=== PATIENT | female | born 1935 | race Caucasian/White ===

== ENCOUNTER 2016-08-17 00:54 | Inpatient (IN) | payer OTHER ==
[2016-08-17] MEDS ORDERED: NS 1,000 ML IV ONE ×2 (01:16)
[2016-08-17] MEDS ORDERED: ONDANSETRON 4 MG/2 ML VIAL IVP ONE (01:16)
--- NOTE | 2016-08-17 01:19 | EDPHY ---
H & P Stated Complaint: x4 days - vomiting, abd pain, abd distension. concerned re dehydration. Time Seen by Provider: 08/17/16 01:06 HPI/ROS: HPI The patient presents with nausea, vomiting, vague dizziness which have been present for the last 4 days. Her symptoms started slowly and got progressively worse. She has been able to take some water by mouth and small amounts of food though not as much as usual. She was seen by her doctor today an given 2 L of normal saline. She was feeling better and was able to tolerate some dinner. However, she awoke and had an episode of vomiting. She noticed that her abdomen felt distended and that is what brought her into the emergency room. REVIEW OF SYSTEMS Constitutional: No fever, no chills. Eyes: No discharge. ENT: No sore throat. Cardiovascular: No chest pain, no palpitations. Respiratory: No cough, no shortness of breath. Gastrointestinal: See HPI Genitourinary: No hematuria. Musculoskeletal: No back pain. Skin: No rashes. Neurological: No headache. PMHx: CLL Soc Hx: Lives at home with her PHYSICAL General Appearance: Alert, no distress Eyes: Pupils equal and round no pallor or injection ENT, Mouth: Mucous membranes dry Respiratory: There are no retractions, lungs are clear to auscultation Cardiovascular: Regular rate and rhythm Gastrointestinal: Abdomen is soft with mild distention, diffuse mild tenderness Neurological: A&O, moves all extremities Skin: Warm and dry, no rashes Musculoskeletal: Neck is supple non tender Extremities: symmetrical, full range of motion Psychiatric: Patient is oriented X 3, there is no agitation Source: Patient Exam Limitations: No limitations - Personal History Current Tetanus/Diphtheria Vaccine: Unsure Current Tetanus Diphtheria and Acellular Pertussis (TDAP): Unsure - Medical/Surgical History Hx Asthma: No Hx Chronic Respiratory Disease: No Hx Diabetes: No Hx Cardiac Disease: No Hx Renal Disease: No Hx Cirrhosis: No Hx Alcoholism: No Hx HIV/AIDS: No Hx Splenectomy or Spleen Trauma: No Other PMH: hypothyroid, CLL, macular degeneration, uterine CA, hysterectomy, skin CA, knee surgery - Social History Smoking Status: Never smoked Constitutional: Initial Vital Signs Temperature (C) 36.7 C 08/17/16 01:02 Heart Rate 85 08/17/16 01:02 Respiratory Rate 16 08/17/16 01:02 Blood Pressure 166/82 H 08/17/16 01:02 O2 Sat (%) 94 08/17/16 01:02 O2 Delivery Mode Room Air Allergies/Adverse Reactions: No Known Allergies Allergy (Verified 08/17/16 00:59) Home Medications: Medication Instructions Recorded [place] Thyroid 08/17/16 Oxytocin 08/17/16 Medical Decision Making - Diagnostics Imaging: CT abd pel with IV contrast: Small bowel obstruction, discussed with Dr. Islas of Radiology. Differential Diagnosis: This is an 80-year-old female with CLL who presents with 4 days of nausea, vomiting, no abdominal distension. She received IV fluids earlier today, however vomited this evening. Differential diagnosis includes viral gastroenteritis, toxin mediated enterocolitis, bowel obstruction. She was given IV fluids for volume depletion and antiemetics. CT scan was performed in the emergency room which demonstrated a small bowel obstruction. Labs revealed a profound leukocytosis, likely related to the patient's underlying CLL. Her BUN was also elevated, likely related to dehydration. Because of the small bowel obstruction, surgery was consulted and Dr. Steinberg came to the emergency room to see the patient. We have placed an NG tube and we plan to admit her to the surgical service. I have ordered her a bed. - Data Points Laboratory Results: Laboratory Results 08/17/16 01:20 08/17/16 01:20 08/17/16 08/17/16 01:20 01:20 WBC 192.95 10^3/uL H* 10^3/uL (3.80-9.50) RBC 4.51 10^6/uL 10^6/uL (4.18-5.33) Hgb 14.3 g/dL g/dL (12.6-16.3) Hct 45.0 % % (38.0-47.0) MCV 99.8 fL fL (81.5-99.8) MCH 31.7 pg pg (27.9-34.1) MCHC 31.8 g/dL L g/dL (32.4-36.7) RDW 14.6 % % (11.5-15.2) Plt Count 191 10^3/uL 10^3/uL (150-400) MPV 10.3 fL fL (8.7-11.7) Neut % (Auto) Not Reported Lymph % (Auto) Not Reported [place] % (Auto) Not Reported Eos % (Auto) Not Reported Baso % (Auto) Not Reported Nucleat RBC Rel Count 0.0 % % (0.0-0.2) Absolute Neuts (auto) Not Reported Absolute Lymphs (auto) Not Reported Absolute Monos (auto) Not Reported Absolute Eos (auto) Not Reported Absolute Basos (auto) Not Reported Absolute Nucleated RBC 0.00 10^3/uL 10^3/uL (0-0.01) Immature Gran % Not Reported Seg Neutrophils % 6 % % Lymphocytes % 94 % % Monocytes % 1 % % Immature Gran # Not Reported Absolute Seg Neuts 11.58 10^/uL H 10^/uL (1.70-6.50) Absolute Lymphocytes 181.37 10^3/uL H 10^3/uL (1.00-3.00) Absolute Monocytes 1.93 10^3/uL H 10^3/uL (0.30-0.80) Differential Comment RBC/WBC/PLT Morphology NORMAL (NORMAL) Atypical Lymphocytes 2+ H Smudge Cells 2+ H Platelet Estimate ADEQUATE (ADEQ) Smear Review By Pending Sodium 138 mEq/L mEq/L (134-144) Potassium 3.9 mEq/L mEq/L (3.5-5.2) Chloride 99 mEq/L mEq/L (97-110) Carbon Dioxide 27 mEq/l mEq/l (22-31) Anion Gap 12 mEq/L mEq/L (8-16) BUN 32 mg/dL H mg/dL (7-23) Creatinine 0.7 mg/dL mg/dL (0.6-1.0) Estimated GFR > 60 Glucose 80 mg/dL mg/dL (70-100) Calcium 9.6 mg/dL mg/dL (8.5-10.4) Total Bilirubin 1.2 mg/dL mg/dL (0.1-1.4) Conjugated Bilirubin 0.4 mg/dL mg/dL (0.0-0.5) Unconjugated Bilirubin 0.8 mg/dL mg/dL (0.0-1.1) AST 47 IU/L H IU/L (14-46) ALT 44 IU/L IU/L (9-52) Alkaline Phosphatase 73 IU/L IU/L (38-126) Total Protein 6.4 g/dL g/dL (6.3-8.2) Albumin 4.4 g/dL g/dL (3.5-5.0) Lipase 288.0 IU/L IU/L (23-300) Medications Given: Discontinued Medications Sodium Chloride (Ns) 1,000 mls @ 0 mls/hr IV ONCE ONE PRN Reason: Wide Open Stop: 08/17/16 01:17 Last Admin: 08/17/16 01:29 Dose: 1,000 mls Sodium Chloride (Ns) 1,000 mls @ 0 mls/hr IV ONCE ONE PRN Reason: Wide Open Stop: 08/17/16 01:17 Last Admin: 08/17/16 01:29 Dose: 1,000 mls Lidocaine (Uroject Lidocaine 2% Jelly) 20 ml UR EDNOW ONE Stop: 08/17/16 03:02 Last Admin: 08/17/16 03:01 Dose: 20 ml Ondansetron HCl (Zofran) 4 mg IVP EDNOW ONE Stop: 08/17/16 01:17 Last Admin: 08/17/16 01:29 Dose: 4 mg Departure - Departure Disposition: [facility] Inpatient Acute Clinical Impression: SBO (small bowel obstruction), CLL (chronic lymphocytic leukemia), Dehydration Condition: Fair
[2016-08-17 01:32] LABS: ADD DIFF? YES; ADD MORPH? NO; ATYPICAL LYMPHOCYTE FLAG 0 (0-99); FRAGMENT RBC FLAG 0 (0-99); HEMOGLOBIN 14.3 g/dL (12.6-16.3); LEFT SHIFT FLG 20 (0-99); LIPEMIA HEMOLYSIS FLAG 80 (0-99); MEAN CELL HEMOGLOBIN 31.7 pg (27.9-34.1); MEAN CELL HEMOGLOBIN CONCENTR. 31.8 g/dL (32.4-36.7); MEAN CELL VOLUME 99.8 fL (81.5-99.8); MEAN PLATELET VOLUME 10.3 fL (8.7-11.7); PLATELET CLUMPS FLAG 70 (0-99); PLATELET COUNT 191 10^3/uL (150-400); RED BLOOD CELL COUNT 4.51 10^6/uL (4.18-5.33); RED CELL DISTRIBUTION WIDTH 14.6 % (11.5-15.2)
[2016-08-17 01:38] LABS: ADD SCAN? NO
[2016-08-17] MEDS ORDERED: IOPAMIDOL (ISOVUE-300) 100 ML BTL IV ONE (01:46)
[2016-08-17 01:54] LABS: ALANINE AMINOTRANSFERASE 44 IU/L (9-52); ALBUMIN 4.4 g/dL (3.5-5.0); ALKALINE PHOSPHATASE 73 IU/L (38-126); ANION GAP 12 mEq/L (8-16); ASPARTATE AMINOTRANSFERASE 47 IU/L (14-46); BILIRUBIN,TOTAL 1.2 mg/dL (0.1-1.4); BILIRUBIN-CONJUGATED 0.4 mg/dL (0.0-0.5); BILIRUBIN-UNCONJUGATED 0.8 mg/dL (0.0-1.1); CALCIUM 9.6 mg/dL (8.5-10.4); CARBON DIOXIDE 27 mEq/l (22-31); CHLORIDE 99 mEq/L (97-110); CREATININE 0.7 mg/dL (0.6-1.0); GLOMERULAR FILTRATION RATE > 60; GLUCOSE 80 mg/dL (70-100); POTASSIUM 3.9 mEq/L (3.5-5.2); SODIUM 138 mEq/L (134-144); TOTAL PROTEIN 6.4 g/dL (6.3-8.2)
[2016-08-17 02:07] LABS: PLATELET ESTIMATE ADEQUATE (ADEQ)
[2016-08-17 02:10] LABS: SMUDGE CELLS 2+
[2016-08-17] MEDS ORDERED: LIDOCAINE 2% JELLY 20 ML (UROJECT) ONE (02:50)
[2016-08-17] MEDS ORDERED: LIDOCAINE 2% JELLY 20 ML (UROJECT) UR ONE (03:01)
[2016-08-17] MEDS ORDERED: HYDROmorphONE/DILAUDID 1 MG/ML SYR IVP PRN (03:33)
[2016-08-17] MEDS ORDERED: ONDANSETRON 4 MG/2 ML VIAL IVP PRN (03:33)
[2016-08-17] MEDS: NS 1,000 ML IV SCH (04:58)
[2016-08-17] MEDS: ACETAMINOPHEN 650 MG SUPP PR SCH ×2 (05:00→15:10)
[2016-08-17] MEDS: KETOROLAC 15 MG/1 ML SDV IVP SCH ×3 (05:01→18:16)
--- NOTE | 2016-08-17 05:17 | GHP ---
[f rep st] PREOP HISTORY AND PHYSICAL DATE OF ADMISSION: 08/17/2016 ADMITTING DIAGNOSIS: Small bowel obstruction. HISTORY OF PRESENT ILLNESS: The patient is an 80-year-old, white female who underwent a DUARTE/BSO approximately 30 years ago for uterine carcinoma. She has had "spells" several times a year for the last 10 years of abdominal distention which is relieved by vomiting and resolves over a 24-hour period. She has ascribed this to the use of soy products. Today's episode started last (today is Tuesday) starting in the afternoon. She had a normal breakfast and a late lunch. She then felt bloated in the afternoon with nausea. She moved her bowels, which helped slightly. She vomited what she thought was food from the day before. She did not sleep well night. On Tuesday, she had continued nausea and vomited twice. She slept on and off on Tuesday and Tuesday night. On Tuesday, she vomited 3 times. On Tuesday, there was no vomiting, but she still felt distended. She did sleep better. Today, she saw her primary care physician, who thought she was dehydrated and gave her 2 L of IV fluid and told her if she did not improve she was to come to the ER. Note is made she has not had any food since last . She has consumed water. Her urine output has been marginal, by report. SOCIAL HISTORY: She smoked from age of 17 to 27 at 1 pack per day. She does not drink any alcohol. ALLERGIES: Currently, she has no known drug allergies. MEDICATIONS: She takes oxytocin for mood improvement. She takes [place] Thyroid 75 mg a day for hypothyroidism of 15 years' duration. She states her dose was recently increased because of a high TSH in May. PAST SURGICAL HISTORY: Other surgeries include a tonsillectomy. She has had a right knee medial and lateral meniscectomy. There is no history of rheumatic fever, tuberculosis, hepatitis or transfusions. REVIEW OF SYSTEMS: She has CLL and is known to have an enlarged spleen. She is not undergoing treatment at this point, but because her white count is up, that is being reconsidered. She had a heart murmur at . She has right eye macular degeneration and left eye dry eyes. She has dental crowns. She does have some issues with stress incontinence. No limitations on her activities. No history of steroid use. PHYSICAL EXAMINATION: GENERAL: She is awake, alert, and in minimal distress. HEENT: Her skull is normocephalic and atraumatic. Pupils equal, round and reactive to light and accommodation with extraocular movements intact. NECK: Unremarkable. There is no enlargement of her thyroid. There are no carotid bruits. BACK: Unremarkable. LUNGS: Clear to auscultation. CARDIAC: Shows S1, S2 to be normal. I do not detect any murmurs, rubs or gallops. ABDOMEN: Distended. She has slightly high-pitched bowel sounds. She is minimally tender to palpation. LYMPH NODES: There is no cervical, supraclavicular, axillary or inguinal lymphadenopathy. LAB AND DIAGNOSTIC DATA: Her white count is 192,000 with mainly lymphocytes. There are 11,000 neutrophils and 181,000 lymphocytes. BUN is 32. Her creatinine is 0.7. Her AST is 47. Her ALT is 44. Lipase is 288. Her CT scan has not been formally read, but certainly shows an extensively dilated small bowel and stomach. There are areas of colon which are also distended. Hernias are not appreciated. IMPRESSION: This patient appears to have a mechanical small bowel obstruction, and this has been a recurrent process for her. I suspect she has a fixed partial-grade bowel obstruction. She eats things that she cannot digest and does not chew well, leading to a temporary partial blockage. It appears to be in the distal ilium. An NG tube (18-Swiss) has been placed, and immediately, she drained 1400 cc of feculent material. She does feel much better. Laboratories are pending, as well as a followup flat and upright in the morning. At this point, I do not feel there is an urgent need to proceed with surgery. Close observation will be carried out. /[id number]/MODL MTDD
[2016-08-17 05:29] LABS: ADD MORPH? NO; ATYPICAL LYMPHOCYTE FLAG 0 (0-99); FRAGMENT RBC FLAG 10 (0-99); HEMATOCRIT 40.4 % (38.0-47.0); HEMOGLOBIN 12.5 g/dL (12.6-16.3); LEFT SHIFT FLG 10 (0-99); LIPEMIA HEMOLYSIS FLAG 80 (0-99); MEAN CELL HEMOGLOBIN 31.3 pg (27.9-34.1); MEAN CELL HEMOGLOBIN CONCENTR. 30.9 g/dL (32.4-36.7); MEAN CELL VOLUME 101.3 fL (81.5-99.8); MEAN PLATELET VOLUME 10.7 fL (8.7-11.7); PLATELET CLUMPS FLAG 20 (0-99); PLATELET COUNT 178 10^3/uL (150-400); RED BLOOD CELL COUNT 3.99 10^6/uL (4.18-5.33); RED CELL DISTRIBUTION WIDTH 13.9 % (11.5-15.2)
[2016-08-17 05:38] LABS: ADD DIFF? YES; ADD SCAN? NO
[2016-08-17 06:04] LABS: PLATELET ESTIMATE ADEQUATE (ADEQ); SMUDGE CELLS 2+
[2016-08-17 06:17] LABS: ANION GAP 12 mEq/L (8-16); CALCIUM 8.3 mg/dL (8.5-10.4); CARBON DIOXIDE 23 mEq/l (22-31); CHLORIDE 103 mEq/L (97-110); CREATININE 0.7 mg/dL (0.6-1.0); GLOMERULAR FILTRATION RATE > 60; GLUCOSE 89 mg/dL (70-100); POTASSIUM 3.5 mEq/L (3.5-5.2); SODIUM 138 mEq/L (134-144)
[2016-08-17 06:38] LABS: COLOR YELLOW; LEUKOCYTE ESTERASE,URINE 2+ (NEGATIVE); NITRITE,URINE NEGATIVE (NEGATIVE)
[2016-08-17 06:44] LABS: MUCUS NONE SEEN /lpf (NONE-1+); WBC,URINE 25-50 /hpf (0-3)
[2016-08-17 06:45] LABS: BACTERIA NONE SEEN /hpf (NONE SEEN)
--- NOTE | 2016-08-17 11:19 | SOAPPROG ---
<Stephanie Boston - Last Filed: 08/17/16 11:20> SOAP Progress Note Assessment/Plan: Assessment: 80yo F h/o uterine CA admitted with recurrent SBO this morning start Gastrografin challenge: PO gastrografin 100mL with 50mL NS. Keep NG clamped for 8 hours, then abdominal x-ray. If contrast in colon or BM, she passes the challenge. If no contrast in colon, we will discuss surgical intervention. Awaiting Xray. Discussed with Dr. Foy and Dr. Damon S: she feels much better after NG tube placed. No nausea. Less distended O: laying in bed, comfortable, NAD NG tube with green brown fluid in canister (400mL now) Hypoactive BS, softly distended. Low phannenstiel scar 08/17/16 11:20 Objective: Vital Signs Temp Pulse Resp BP Pulse Ox 36.7 C 68 16 139/62 H 92 08/17/16 07:39 08/17/16 07:39 08/17/16 07:39 08/17/16 07:39 08/17/16 07:39 Laboratory Results 08/17/16 05:06 08/17/16 05:06 08/16/16 08/17/16 08/18/16 05:59 05:59 05:59 Intake Total 1999 Output Total 1400 Balance 600 ICD10 Worksheet Patient Problems: Problems Problem Status Onset CLL (chronic lymphocytic leukemia) Acute Dehydration Acute SBO (small bowel obstruction) Acute <Honey Foy - Last Filed: 08/17/16 21:25> SOAP Progress Note Assessment/Plan: Assessment: Abdominal x ray without gastrograffin in colon. More distended. I put her back to suction. Will see if improves. AXR in am. Plan: 08/17/16 21:24 Objective: Vital Signs Temp Pulse Resp BP Pulse Ox 36.8 C 71 18 175/93 H 91 L 08/17/16 19:22 08/17/16 19:22 08/17/16 19:22 08/17/16 19:22 08/17/16 19:22 Laboratory Results 08/17/16 05:06 08/17/16 05:06 08/16/16 08/17/16 08/18/16 05:59 05:59 05:59 Intake Total 1999 1337 Output Total 1400 935 Balance 708 967
[2016-08-17] MEDS ORDERED: KETOROLAC 15 MG/1 ML SDV IVP PRN (19:22)
[2016-08-18] MEDS: ACETAMINOPHEN 650 MG SUPP PR SCH ×4 (00:30→20:20)
[2016-08-18] MEDS: NS 1,000 ML IV SCH (01:09)
--- NOTE | 2016-08-18 11:24 | SOAPPROG ---
SOAP Progress Note Assessment/Plan: Assessment: 80yo F h/o uterine CA admitted with recurrent SBO Failed gastrografin challenge yesterday Continue NG Xray this am shows increased bowel wall thickening but patient clinically much improved Will continue to monitor non-op, if worsens or does not improve will discuss surgery Oncology consult Dispo: continue inpatient until return of bowel function. Seen c Dr. Foy S: no flatus or bm. Mild nausea last night but resolved. No pain. Feels less distended O: laying in bed, comfortable, NAD NG tube in place No increased WOB Abd softly distended, nontender. Few bowel sounds heard throughout Objective: Vital Signs Temp Pulse Resp BP Pulse Ox 36.7 C 68 16 170/71 H 93 08/18/16 08:00 08/18/16 08:00 08/18/16 08:00 08/18/16 08:00 08/18/16 08:00 Laboratory Results 08/17/16 05:06 08/17/16 05:06 08/17/16 08/18/16 08/19/16 05:59 05:59 05:59 Intake Total 1999 2424 Output Total 1400 8337 Balance 600 -9340 ICD10 Worksheet Patient Problems: Problems Problem Status Onset CLL (chronic lymphocytic leukemia) Acute Dehydration Acute SBO (small bowel obstruction) Acute
[2016-08-18] MEDS: D5W 1/2 NS W/ 20 KCl/L 1,000 ML IV SCH (12:15)
[2016-08-18] MEDS ORDERED: IMMUNE GLOBULIN 20 GM/200 ML VIAL IV ONE (13:18)
--- NOTE | 2016-08-18 14:01 | GCON ---
[f rep st] CONSULTATION HEMATOLOGY/ONCOLOGY INITIAL VISIT. PRIMARY ONCOLOGIST: Dr. Isiah Arechiga. REASON FOR CONSULTATION: CLL. HISTORY OF PRESENT ILLNESS: The patient is an 80-year-old woman with a long history of chronic lymp hocytic leukemia. She was initially diagnosed in November 2001. She has required therapy for the disor tereza in the past, the first in 2006, second in 2009, and the third most recent in 2014, each time whi ch is single agent rituximab. Generally, when it is time to treat her, her white count is significa ntly rising and she is becoming progressively more anemic. Her white count has been rising more rec ently, but she has otherwise been feeling well up until this admission. She occasionally has had some abdominal distention and vomiting, but it usually resolved after a 24- hour period. This had occurred a few times over the last 10 years. Four days prior to admission, s he was having more problems with bloating and nausea with vomiting. However, it was not resolving l fabby it had before and she was not eating or drinking, so eventually she came to the emergency room f or an evaluation. While there, she appeared to have had a mechanical small bowel obstruction. She has had an NG tube placed and is feeling a little better, but there is no evidence of relief of the obstruction thus far. Although date and time has not been set, Dr. Foy has indicated to me that s he may need to take her to surgery to alleviate the obstruction. ALLERGIES: She has no known drug allergies, although she is sensitive to Benadryl and it makes her very sleepy. MEDICATIONS: Include oxytocin, estradiol, and thyroid replacement. PAST MEDICAL HISTORY: Chronic illnesses include low thyroid, CLL as per HPI, and macular degenerati on. PAST SURGICAL HISTORY: Includes hysterectomy 30 years ago. SOCIAL HISTORY: She is essentially a nonsmoker and does not drink. FAMILY HISTORY: Noncontributory. REVIEW OF SYSTEMS: 10-point review of systems performed. Pertinent positives in HPI, otherwise neg ative. PHYSICAL EXAM: VITAL SIGNS: Temperature is 36.3, pulse 79, blood pressure 153/79. GENERAL: She i s an elderly woman but in no distress. HEENT: Unremarkable. NG tube is in place, draining bilious -looking material. LUNGS: Clear. CARDIAC: Regular. ABDOMEN: Soft, mildly distended. Absent alejandra wel sounds. I did not appreciate a spleen tip. Exam reveals no peripheral lymphadenopathy. NEURO: Grossly intact. LABORATORY DATA: White count earlier this week was 192,000 and today it is 140,000. Hemoglobin is 12.5. Platelet count is 178,000. Neutrophil count is about 11,000. Chemistries: LFTs are unremar kable. TSH was normal. CT showed small bowel obstruction involving the ilium and proximal jejunum. Plain film today also s howed persistent obstruction. IMPRESSION: 1. Chronic lymphocytic leukemia. 2. Hypogammaglobulinemia. 3. Small bowel obstruction. There is no indication to start therapy for her CLL, and she has been treated just with primarily si ngle agent rituximab. The last was spring 2014. However, she does have a history of hypogammaglobu linemia and may need to undergo bowel surgery, so I recommended IVIG replacement while in the hospit al to help lower her risk of infectious complications. This would not need to be continued after di scharmaribel. We will continue to follow along with you while in the hospital. Bowel obstruction manage ment as per General Surgery. /[id number]/MODL
[2016-08-18] MEDS: ENALAPRILAT DIHYDRATE 1.25 MG/ML VIAL IVP PRN (20:09)
[2016-08-19] MEDS: ACETAMINOPHEN 650 MG SUPP PR SCH ×3 (05:10→21:31)
[2016-08-19] MEDS: D5W 1/2 NS W/ 20 KCl/L 1,000 ML IV SCH ×2 (06:34→17:12)
--- NOTE | 2016-08-19 11:08 | SOAPPROG ---
SOAP Progress Note Assessment/Plan: Assessment:80 yo with sbo jejunum/ileum. Failed gastrograffin challenge but much improved with NG suction. AXR today. Appreciate Dr. Donovan seeing her. S: Feeling better. Abdomen softer O: Sitting in chair. NG with high viscous larry fluid CTAB, no increased work of breathing Regular rate No peripheral edema BS present, soft, non tender Normal nails Plan: 08/17/16 21:24 08/19/16 11:06 Objective: Vital Signs Temp Pulse Resp BP Pulse Ox 36.9 C 73 18 151/72 H 91 L 08/19/16 07:22 08/19/16 07:22 08/19/16 07:22 08/19/16 07:22 08/19/16 07:22 Microbiology 08/17/16 06:40 Urine Culture - Final Urine,Clean Catch Four [place] Types Laboratory Results 08/17/16 05:06 08/17/16 05:06 08/18/16 08/19/16 08/20/16 05:59 05:59 05:59 Intake Total 2425 0 Output Total 7559 1720 Balance -1450 -3723 ICD10 Worksheet Patient Problems: Problems Problem Status Onset CLL (chronic lymphocytic leukemia) Acute Dehydration Acute SBO (small bowel obstruction) Acute
[2016-08-19] MEDS: ENALAPRILAT DIHYDRATE 1.25 MG/ML VIAL IVP PRN (12:43)
--- NOTE | 2016-08-19 15:26 | SOAPPROG ---
SOAP Progress Note Assessment/Plan: E&M for CLL * CLL: long standing and last therapy 2014 with single agent Rituximab; WBC outpatient rising but asymptomatic. 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 Managed by Dr. Foy. Subjective: Feeling better and passed a couple of stools. Still with NG tube. Tolerated IVIg well. Objective: Vital Signs Temp Pulse Resp BP Pulse Ox 36.6 C 73 16 163/99 H 93 08/19/16 11:50 08/19/16 11:50 08/19/16 11:50 08/19/16 12:43 08/19/16 11:50 Microbiology 08/17/16 06:40 Urine Culture - Final Urine,Clean Catch Four [place] Types Laboratory Results 08/17/16 05:06 08/17/16 05:06 08/18/16 08/19/16 08/20/16 05:59 05:59 05:59 Intake Total 2425 0 Output Total 9486 5755 Balance -1420 -372 Physical Exam - Physical Exam General Appearance: no apparent distress Respiratory: lungs clear Cardiac/Chest: regular rate, rhythm Abdomen: soft, No normal bowel sounds ICD10 Worksheet Patient Problems: Problems Problem Status Onset CLL (chronic lymphocytic leukemia) Acute Dehydration Acute SBO (small bowel obstruction) Acute
[2016-08-20] MEDS: ACETAMINOPHEN 650 MG SUPP PR SCH ×3 (05:14→21:51)
[2016-08-20 08:11] LABS: ADD DIFF? YES; ADD MORPH? NO; ATYPICAL LYMPHOCYTE FLAG 0 (0-99); FRAGMENT RBC FLAG 0 (0-99); HEMATOCRIT 41.3 % (38.0-47.0); HEMOGLOBIN 12.7 g/dL (12.6-16.3); LEFT SHIFT FLG 10 (0-99); LIPEMIA HEMOLYSIS FLAG 80 (0-99); MEAN CELL HEMOGLOBIN 31.1 pg (27.9-34.1); MEAN CELL HEMOGLOBIN CONCENTR. 30.8 g/dL (32.4-36.7); MEAN PLATELET VOLUME 10.5 fL (8.7-11.7); PLATELET CLUMPS FLAG 10 (0-99); PLATELET COUNT 126 10^3/uL (150-400); RED BLOOD CELL COUNT 4.09 10^6/uL (4.18-5.33); RED CELL DISTRIBUTION WIDTH 13.3 % (11.5-15.2)
[2016-08-20 08:33] LABS: ADD SCAN? NO
[2016-08-20] MEDS: ENALAPRILAT DIHYDRATE 1.25 MG/ML VIAL IVP PRN (08:35)
[2016-08-20 08:48] LABS: ANION GAP 9 mEq/L (8-16); CALCIUM 7.9 mg/dL (8.5-10.4); CARBON DIOXIDE 27 mEq/l (22-31); CHLORIDE 102 mEq/L (97-110); CREATININE 0.5 mg/dL (0.6-1.0); GLOMERULAR FILTRATION RATE > 60; GLUCOSE 127 mg/dL (70-100); POTASSIUM 3.4 mEq/L (3.5-5.2); SODIUM 138 mEq/L (134-144)
[2016-08-20] MEDS ORDERED: CEPACOL LOZENGE PO PRN (09:57)
--- NOTE | 2016-08-20 10:41 | SOAPPROG ---
SOAP Progress Note Assessment/Plan: Assessment: 80yo F h/o uterine CA admitted with recurrent SBO NG clamp trial today. If <200mL out, can remove NG and advance diet Bowel movements yesterday and overnight. Min flatus Pain controlled Appreciate oncology input Dispo: continue inpatient until return of bowel function. Seen c Dr. Foy S: had BMs every hour overnight. No pain, bloating or nausea. no flatus or bm. O: laying in bed, comfortable, NAD NG tube in place - clamped No increased WOB Abd softly distended, nontender. Few bowel sounds heard throughout Objective: Vital Signs Temp Pulse Resp BP Pulse Ox 36.8 C 72 14 161/77 H 95 08/20/16 08:00 08/20/16 08:00 08/20/16 08:00 08/20/16 08:35 08/20/16 08:00 Microbiology 08/17/16 06:40 Urine Culture - Final Urine,Clean Catch Four [place] Types Laboratory Results 08/20/16 07:55 08/20/16 07:55 08/19/16 08/20/16 08/21/16 05:59 05:59 05:59 Intake Total 0 1150 1217 Output Total 3725 1350 Balance -3725 -200 1217 ICD10 Worksheet Patient Problems: Problems Problem Status Onset CLL (chronic lymphocytic leukemia) Acute Dehydration Acute SBO (small bowel obstruction) Acute
[2016-08-20 11:22] LABS: PLATELET ESTIMATE DECREASED (ADEQ); SMUDGE CELLS 2+
[2016-08-20] MEDS: D5W 1/2 NS W/ 20 KCl/L 1,000 ML IV SCH ×2 (12:41→22:51)
--- NOTE | 2016-08-20 16:44 | SOAPPROG ---
SOAP Progress Note Assessment/Plan: E&M for CLL * CLL: long standing and last therapy 2014 with single agent Rituximab; WBC outpatient rising but asymptomatic. 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 Managed by Dr. Foy. If she goes home soon, she is to follow up with Dr. Arechiga in 1-2 weeks. Subjective: Passed stool and gas. NG tube removed. She has only tried sips of water so far. Objective: Vital Signs Temp Pulse Resp BP Pulse Ox 36.8 C 88 16 122/71 H 96 08/20/16 16:00 08/20/16 16:00 08/20/16 16:00 08/20/16 16:00 08/20/16 16:00 Microbiology 08/17/16 06:40 Urine Culture - Final Urine,Clean Catch Four [place] Types Laboratory Results 08/20/16 07:55 08/20/16 07:55 08/19/16 08/20/16 08/21/16 05:59 05:59 05:59 Intake Total 0 1150 1217 Output Total 3725 1350 200 Balance -3725 -200 1017 Laboratory Tests 08/17/16 08/20/16 05:06 07:55 WBC 140.00 H* 113.86 H* Hgb 12.5 L 12.7 Plt Count 178 126 L Physical Exam - Physical Exam General Appearance: no apparent distress Abdomen: non-tender, soft, distended, No normal bowel sounds ICD10 Worksheet Patient Problems: Problems Problem Status Onset CLL (chronic lymphocytic leukemia) Acute Dehydration Acute SBO (small bowel obstruction) Acute
[2016-08-21] MEDS: ACETAMINOPHEN 650 MG SUPP PR SCH ×3 (05:23→20:32)
--- NOTE | 2016-08-21 09:25 | SOAPPROG ---
SOAP Progress Note Assessment/Plan: Assessment:80 yo with sbo jejunum/ileum. F Tolerating clears Hopeful home today vs tomorrow, advance diet at home to low fiber low residue x 2 weeks S: Feeling better. flatus and bm O: Sitting in chair. CTAB, no increased work of breathing Regular rate No peripheral edema BS present, soft, non tender Normal nails Plan: 08/17/16 21:24 08/19/16 11:06 08/21/16 09:24 Objective: Vital Signs Temp Pulse Resp BP Pulse Ox 36.5 C 61 18 148/69 H 95 08/21/16 02:57 08/21/16 02:57 08/21/16 02:57 08/21/16 02:57 08/21/16 02:57 Laboratory Results 08/20/16 07:55 08/20/16 07:55 08/20/16 08/21/16 08/22/16 05:59 05:59 05:59 Intake Total 1150 2417 Output Total 1350 700 Balance -200 1717 ICD10 Worksheet Patient Problems: Problems Problem Status Onset CLL (chronic lymphocytic leukemia) Acute Dehydration Acute SBO (small bowel obstruction) Acute
[2016-08-21] MEDS ORDERED: NON-FORMULARY NEW DRUG (Thyroid,Pork [Armour Thyroid] 15 MG) PO SCH ×2 (10:00)
[2016-08-21] MEDS: THYROID 60 MG TAB PO SCH ×2 (10:35→10:36)
[2016-08-21] MEDS: OXYTOCIN PO SCH (20:33)
[2016-08-21 23:50] VITALS: O2SAT 95
[2016-08-22] MEDS: ACETAMINOPHEN 650 MG SUPP PR SCH (05:25)
[2016-08-22] MEDS: THYROID 60 MG TAB PO SCH ×2 (08:41)
[2016-08-22] MEDS: OXYTOCIN PO SCH (08:42)
[2016-08-22 08:47] VITALS: BP 151/76; PULSE 65; RESP 14; TEMP 98.3
--- NOTE | 2016-08-22 10:36 | SOAPPROG ---
SOAP Progress Note Assessment/Plan: Assessment:80 yo with sbo jejunum/ileum. Tolerating diet Home today advance diet at home to low fiber low residue x 2 weeks S: Feeling better. flatus and bm O: Sitting in bed CTAB, no increased work of breathing Regular rate No peripheral edema BS present, soft, non tender Normal nails Plan: 08/17/16 21:24 08/19/16 11:06 08/21/16 09:24 08/22/16 10:35 Objective: Vital Signs Temp Pulse Resp BP Pulse Ox 36.8 C 65 14 151/76 H 95 08/22/16 08:00 08/22/16 08:00 08/22/16 08:00 08/22/16 08:00 08/22/16 08:00 Laboratory Results 08/20/16 07:55 08/20/16 07:55 08/21/16 08/22/16 08/23/16 05:59 05:59 05:59 Intake Total 5306 950 Output Total 700 1400 Balance 1717 -450 ICD10 Worksheet Patient Problems: Problems Problem Status Onset CLL (chronic lymphocytic leukemia) Acute Dehydration Acute SBO (small bowel obstruction) Acute
--- NOTE | 2016-08-23 17:52 | GDS ---
[f rep st] DISCHARGE SUMMARY ADMITTING DIAGNOSIS: Small-bowel obstruction. SECONDARY DIAGNOSES: 1. Uterine carcinoma. 2. Hypothyroidism. 3. Chronic lymphocytic leukemia with hypogammaglobulinemia. REASON FOR ADMISSION: The patient is a pleasant 80-year-old woman who presented to the emergency ro with nausea, vomiting, abdominal pain. She was found to have a small bowel obstruction and was a dmitted for bowel rest, NG tube decompression, IV fluid hydration, and observation. HOSPITAL COURSE: Upon presentation to the emergency room, she had an abdominal CT scan which showed a small bowel obstruction involving the ileum and proximal jejunum. An NG tube was placed, and she was placed on IV fluids. She underwent a Gastrografin challenge. A followup x-ray showed no contr ast in the colon meaning that she had failed the trial. She was seen by Dr. Donovan on hospital day # 1 for CLL and received IVIG. Her NG tube was removed on hospital day #3, and her diet was advanced. She began to pass flatus and tolerated clear liquid diet, then regular diet. She was ready for [facility] on 08/22/2016, pain controlled, ambulating independently, tolerating regular diet without wo rsening nausea, vomiting, or distention. CONDITION: She is being discharged home in stable condition. Pain controlled with oral pain medica tion. Tolerating regular diet, ambulating independently. DISCHARGE MEDICATIONS: She may resume home medications. Please see EMR for further detail. DISCHARGE PLAN AND FOLLOWUP: She will follow a low residue diet for 2 weeks. She will follow up pa geovany Foy in 2 weeks. She understands to call our office with any worsening symptoms, questions, or concerns. /[id number]/MODL
== END 2016-08-22 11:11 | disposition home or self-care (01) | DRG 389 ==
LOC: F3E 04:19
PROVIDERS: ADMIT Surgery; ATTEND Surgery
PROC: 0D9670Z Drainage of Stomach with Drainage Device, Via Natural or Artificial Opening (ICD-10-PCS; principal; 2016-08-17)
PROC: 3E033WK Introduction of Immunostimulator into Peripheral Vein, Percutaneous (ICD-10-PCS; 2016-08-18)
DX: K56.60 Unspecified intestinal obstruction (principal); C91.10 Chronic lymphocytic leukemia of B-cell type not having achieved remission; D80.1 Nonfamilial hypogammaglobulinemia; E03.9 Hypothyroidism, unspecified; Z85.42 Personal history of malignant neoplasm of other parts of uterus
CPT/HCPCS: 96374; J1200; J1459; J1885; J2405; Q9967

== ENCOUNTER 2018-08-02 09:57 | Inpatient (IN) | payer OTHER ==
--- NOTE | 2018-08-02 06:17 | PDHPUP ---
History & Physical Update H&P update statement: This history and physical update is based on an assessment of the patient which was completed after admission or registration (within 24 hours), but prior to the surgery/procedure. H&P update: H&P reviewed & patient examined, no change in patient's condition since H&P completed
[~2018-08-02 09:57] MED LIST: ROPIVACAINE 0.2% 80 MG, EPINEPHrine 0.2 MG, KETOROLAC TROMETHAMINE 30 MG in SYRINGE 0 ML IU ONE; TRANEXAMIC ACID 3,000 MG in NS (SYRINGE) 50 ML IRR ONE; TRANEXAMIC ACID 3,000 MG/50 ML BAG IRR ONE; ceFAZolin 2 GM/DEXTROSE 100 ML IV ONE
[2018-08-02] MEDS ORDERED: DEXAMETHASONE 4 MG/ML VIAL IVP ONE (10:24)
[2018-08-02] MEDS ORDERED: FAMOTIDINE 20 MG TAB PO ONE (10:24)
[2018-08-02] MEDS ORDERED: ACETAMINOPHEN 325 MG TAB PO ONE (10:24)
[2018-08-02] MEDS ORDERED: LR 1,000 ML IV ONE (10:25)
--- NOTE | 2018-08-02 11:54 | PDANEPAE ---
ANE Past Medical History - Cardiovascular History Hx Hypertension: No Hx Arrhythmias: No Hx Chest Pain: No Hx Coronary Artery / Peripheral Vascular Disease: No Hx CHF / Valvular Disease: No Hx Palpitations: No - Pulmonary History Hx COPD: No Hx Asthma/Reactive Airway Disease: No Hx Recent Upper Respiratory Infection: No Hx Oxygen in Use at Home: No Hx Sleep Apnea: Yes Sleep Apnea Screening Result - Last Documented: Negative - Neurologic History Hx Cerebrovascular Accident: No Hx Seizures: No Hx Dementia: No - Endocrine History Hx Diabetes: No - Renal History Hx Renal Disorders: No - Liver History Hx Hepatic Disorders: No - Neurological & Psychiatric Hx Hx Neurological and Psychiatric Disorders: No - Cancer History Hx Cancer: Yes Cancer History Comment: uterine. skin ca melanoma. CLL tx 1 every 3 yrs - Congenital Disorder History Hx Congenital Disorders: No - GI History Hx Gastrointestinal Disorders: No - Other Health History Other Health History: retina degeneration right eye - Chronic Pain History Chronic Pain: No - Surgical History Prior Surgeries: 2013 knee scope ANE Review of Systems Review of Systems: - Exercise capacity METS (RN): 4 METS ANE Patient History - Allergies Allergies/Adverse Reactions: No Known Allergies Allergy (Verified 08/17/16 00:59) - Home Medications Home Medications: Estradiol [Estrace Vaginal (*)] 1 kavin VG DEMARCO@21 08/17/16 [Last Taken 08/02/18] Oxytocin 20 Units Sl 20 mg PO BID 08/17/16 [Last Taken 08/02/18] Thyroid [[place] Thyroid 60 MG (*)] 60 mg PO DAILY10 08/17/16 [Last Taken ] Thyroid,Pork [ARMOUR THYROID] 15 mg PO DAILY10 08/17/16 [Last Taken 08/02/18] Herbals/Supplements -Info Only 1 ea PO DAILY 07/06/18 [Last Taken 08/02/18] - NPO status NPO Since - Liquids (Date): 08/02/18 NPO Since - Liquids (Time): 09:15 NPO Since - Solids (Date): 08/01/18 - Smoking Hx Smoking Status: Former smoker - Family Anes Hx Family Hx Anesthesia Complications: none ANE Labs/Vital Signs - Vital Signs Blood Pressure: 139/63 Heart Rate: 65 Respiratory Rate: 15 O2 Sat (%): 97 Height: 166.37 cm Weight: 53.524 kg ANE Physical Exam - Airway Mallampati Score: Class 2 - ASA Status ASA Status: II ANE Anesthesia Plan Anesthesia Plan: spinal
[2018-08-02] MEDS ORDERED: MIDAZOLAM 2 MG/2 ML VIAL ONE (12:02)
[2018-08-02] MEDS ORDERED: PROPOFOL/EMULSION 500 MG/50 ML BOTTLE IV ONE (12:03)
[2018-08-02] MEDS ORDERED: fentaNYL 100 MCG/2 ML INJ ONE (12:03)
[2018-08-02] MEDS ORDERED: METOCLOPRAMIDE 10 MG/2 ML VIAL IVP PRN ×2 (13:20→13:25)
[2018-08-02] MEDS ORDERED: DIPHENOXYLATE/ATROPINE LOMOTIL 1 TAB PO PRN (13:20)
[2018-08-02] MEDS ORDERED: diphenhydrAMINE 25 MG CAP PO PRN (13:20)
[2018-08-02] MEDS ORDERED: CYCLOBENZAPRINE 10 MG TAB PO PRN (13:20)
[2018-08-02] MEDS ORDERED: ONDANSETRON DISINTEGRATING 4 MG TAB PO PRN (13:20)
[2018-08-02] MEDS ORDERED: POLYETHYLENE GLYCOL 3350 17 GM PKT PO PRN (13:20)
[2018-08-02] MEDS ORDERED: ONDANSETRON 4 MG/2 ML VIAL IVP PRN (13:20)
[2018-08-02] MEDS ORDERED: PROMETHAZINE HCL 25 MG SUPPR PR PRN (13:20)
[2018-08-02] MEDS ORDERED: TEMAZEPAM 15 MG CAP PO PRN (13:20)
[2018-08-02] MEDS ORDERED: MAGNESIUM HYDROXIDE 30 ML UDCUP PO PRN (13:20)
[2018-08-02] MEDS ORDERED: LACTULOSE 20 GM/30 ML UDCUP PO PRN (13:20)
[2018-08-02] MEDS ORDERED: PROMETHAZINE HCL 25 MG/ML INJ IVP PRN ×2 (13:20→13:25)
[2018-08-02] MEDS ORDERED: BISACODYL 10 MG SUPP PR PRN (13:20)
--- NOTE | 2018-08-02 13:20 | POSTOPPROG ---
Post Op Note Date of Operation: 08/02/18 Surgeon: Dianna Benton Storekeeper Engineering: cornelio Camejo PA-C and Alisha benton PA-C Anesthesiologist: dr. gordillo Anesthesia: Spinal Pre-op Diagnosis: right hip OA Post-op Diagnosis: same Indication: right hip pain Procedure: R SHAYNA ant approach Findings: severe hip OA Inf/Abcess present in the surg proc area at time of surgery?: No EBL: 100-500
[2018-08-02] MEDS ORDERED: LR 500 ML IV PRN (13:25)
[2018-08-02] MEDS ORDERED: HYDROmorphONE/DILAUDID 2 MG/ML INJ IVP PRN (13:25)
[2018-08-02] MEDS ORDERED: fentaNYL 100 MCG/2 ML INJ IVP PRN (13:25)
[2018-08-02] MEDS ORDERED: NALOXONE HCL 0.4 MG/ML INJ IVP PRN (13:25)
--- NOTE | 2018-08-02 13:27 | POSTANESTH ---
Post Anesthetic Evaluation Cardiovascular Status: Normal, Stable Respiratory Status: Normal, Stable Level of Consciousness/Mental Status: Can Participate in Eval Pain Control: Adequate, Prn Tx Ordered Nausea/Vomiting Control: Adequate, Prn Tx Ordered Complications Possibly Related to Anesthesia: None Noted
[2018-08-02] MEDS ORDERED: LR 1,000 ML IV SCH (13:30)
[2018-08-02] MEDS: ceFAZolin 2 GM/DEXTROSE 100 ML IV SCH (15:04)
--- NOTE | 2018-08-02 15:33 | PDMN ---
Medical Necessity Medical necessity: Pt meets IP criteria as of 08/02/2018 per and [facility] S-560 ( Hip Arthroplasty); IP only procedure. Auth # [id number]
[2018-08-02] MEDS: oxyCODONE IR 5 MG TAB PO PRN ×2 (15:47→18:33)
[2018-08-02] MEDS ORDERED: WARFARIN SODIUM 5 MG TAB PO SCH (16:00)
[2018-08-02] MEDS: ACETAMINOPHEN 325 MG TAB PO SCH (18:33)
[2018-08-02] MEDS: OXYTOCIN PO SCH (20:43)
[2018-08-02] MEDS: SENNOSIDES/DOCUSATE SODIUM TAB PO SCH (20:44)
[2018-08-02] MEDS: FAMOTIDINE 20 MG TAB PO SCH (20:45)
[2018-08-03] MEDS: ACETAMINOPHEN 325 MG TAB PO SCH ×2 (00:48→09:02)
[2018-08-03] MEDS: ceFAZolin 2 GM/DEXTROSE 100 ML IV SCH (04:28)
[2018-08-03 05:44] LABS: INR 1.15 (0.83-1.16); PROTIME(PATIENT) 14.2 SEC (12.0-15.0)
--- NOTE | 2018-08-03 08:24 | GOP ---
[f rep st] OPERATIVE REPORT DATE OF OPERATION: 08/02/2018 SURGEON: Silvana Coffey MD CELL ATTENDANT HELPER: Malini Camejo PA-C ANESTHESIA: Spinal. PREOPERATIVE DIAGNOSIS: Right hip osteoarthritis. POSTOPERATIVE DIAGNOSIS: Right hip osteoarthritis. PROCEDURE PERFORMED: Right total hip arthroplasty with x-ray. FINDINGS: ESTIMATED BLOOD LOSS: 200 cc. INDICATIONS: The patient has progressively worsening arthritis of the hip which has failed medical m anagement. The patient understands the treatment options including continued non-operative care and has selected surgical intervention. The patient has decided to undergo total hip arthroplasty via th e direct anterior approach, understanding the risks of the procedure including, but not limited to, n eurovascular injury, infection, persistent pain, component wear and loosening, deep venous thrombosis , pulmonary embolism, limb length inequality, hip instability (including dislocation), and intra-oper ative fractures. DESCRIPTION OF PROCEDURE: After proper identification of the patient including verification and rodrick ing the surgical site, the patient was brought to the operating room and placed in the supine positio n. All bony prominences were well padded. Anesthesia was induced without complication and intraveno us prophylactic antibiotics were administered prior to skin incision. The operative leg was placed in the Trumpf Arch table extension and the well leg in a [place]ellofin leg ho lder. The patient was prepped and draped in the usual sterile fashion. The C-arm was draped for int ra-operative fluoroscopy to check acetabular position, femoral component position including leg lengt h and femoral offset. Attention was then drawn to surgical exposure of the hip. An incision was made with a #10 Bard Andrews r blade starting 3 cm lateral and 3 cm distal to the anterior superior iliac spine measuring 8-10 cm and coursing distally toward the greater trochanter. The skin and subcutaneous tissues were divided sharply down to the fascia connor. The fascia connor was incised in line with the skin incision exposing the underlying tensor fascia connor muscle. The muscle was bluntly elevated from the fascia and the f irst extracapsular Cobra retractor was placed laterally at the junction of the superior femoral neck and greater trochanter. The lateral femoral circumflex vessels were identified, cauterized, and divi ded with the Aquamantys bipolar cautery. The deep investing fascia of the TFL was divided to allow p sandeep mobilization of the muscle preventing damage during the retraction. The reflected head of the rectus femoris muscle was elevated off the anterior hip capsule and a medial Cobra retractor was plac ed just proximal to the lesser trochanter. The anterior capsulotomy was made sharply from the superolateral acetabulum to the saddle junction of the superior femoral neck and greater trochanter, then coursing inferomedial towards the lesser troc hanter. The retractors were then placed in the intracapsular position for femoral neck osteotomy. C orresponding to pre-operative templating, the osteotomy was made with the oscillating saw carefully p rotecting the greater trochanter and soft tissues. The femoral head was removed from the acetabulum with a corkscrew and confirmed to be severely arthritic with exposed bone, deformity and osteophytes. Similar findings were confirmed in the acetabulum. The Arch table extension was then placed in 40 degrees external rotation. Attention was then drawn to the acetabular preparation. After placement of the anterior and posterio r Cobra retractors outside the labrum and intracapsular, the circumferential labrum was removed sharp ly. The foveal contents were then removed and hemostasis obtained with cautery. The first reamer selected was sized using the removed femoral head. Reaming began with medialization and then commenced in 2 mm increments at 45 degrees of abduction and 15 degrees of anteversion using fluoroscopic navigation. Reaming ceased 1 mm less than the definitive acetabular component and deepthi esponded to the pre-operative templating. The final acetabular component was inserted using fluorosc opy to achieve proper orientation yielding excellent purchase and stability in the acetabulum. The f inal acetabular liner was then placed and its seating confirmed. Attention was then turned to the femur. The Arch table extension was placed in extension and adducti on, delivering the osteotomized femoral neck into the wound. A 2-pronged femoral elevator was placed at the calcar and another at the tip of the greater trochanter. The posterolateral capsule was rele ased with cautery allowing mobilization of the femur lateral and anterior for preparation. The exter nal rotators were visualized and preserved. A curette and rongeur were used to open the starting poi nt for broaching. Serial broaching started with the #0 broach and ended with the broach that exhibit ed excellent fit in the proximal femur. A change in pitch during mallet strikes was accompanied by t he inability to advance the broach any further. The trial reduction was performed and fluoroscopic n avigation was utilized to check limb length. Adjustments were made to equalize limb length according ly. After the final trials were accepted they were removed and the wound was copiously lavaged. The femo ral component was seated to the same depth as the final broach and the femoral head was impacted onto the clean trunnion. The hip was then reduced for the final time and once more fluoroscopy was used to check that limb length equality was achieved. The wound was irrigated and closed in layers, the fascia connor with 2-0 Quill, the subcutaneous tissue with 2-0 Quill, and the skin with Dermabond. Sterile dressings were applied. Final sharps and spon ge counts were accurate. The patient was then transferred to a hospital bed and brought to the [facility] room in stable condition. IMPLANTS: Accolade II size 6 at 127. Acetabular component Trident II, 52 mm. Liner is a Trident X3 , 36 mm head with a Biolox delta 36 mm -2.5. /[id number]/MODL
[2018-08-03 08:36] VITALS: BP 140/58
[2018-08-03] MEDS ORDERED: ENOXAPARIN 40 MG/0.4 ML SYR SC SCH (09:00)
[2018-08-03] MEDS: SENNOSIDES/DOCUSATE SODIUM TAB PO SCH (09:01)
[2018-08-03] MEDS: OXYTOCIN PO SCH (09:01)
[2018-08-03] MEDS: FAMOTIDINE 20 MG TAB PO SCH (09:02)
--- NOTE | 2018-08-03 09:23 | ASMTLACE ---
[facility] Length of stay for Answers: 2 days current admission Acuity / Level of Answers: Yes Care: Did the patient have an inpatient admission? # of Emergency department Answers: 0 visits in the last 6 months Score: 5 Date Signed: 08/03/2018 09:22 AM Electronically Signed By:GASTON Coreas
--- NOTE | 2018-08-03 09:27 | SOAPPROG ---
SOAP Progress Note Assessment/Plan: Assessment: Patient is doing well POD 1 s/p R SHAYNA Pain management: pain is well controlled on oral pain meds. VTE ppx: recommend coumadin and lovenox, INR 1.15, cont CANDIE and SCDs Anemia: level is expected initially postop. Asymptomatic. Continue to monitor D/c planning: Patient has done better than anticipated and would like to be discharged to home today. Patient must be released from PT before discharge to home. Plan: 08/03/18 09:26 Subjective: patient is doing well today, denies SOB, chest pain and N/V Objective: Vital Signs Temp Pulse Resp BP Pulse Ox 36.8 C 67 17 140/58 H 96 08/03/18 08:00 08/03/18 08:00 08/03/18 08:00 08/03/18 08:00 08/03/18 08:00 Laboratory Results 08/03/18 05:05 08/03/18 05:01 08/02/18 08/03/18 08/04/18 05:59 05:59 05:59 Intake Total 2046 Output Total 1500 Balance 546 PT 14.2 SEC (12.0-15.0) 08/03/18 05:01 INR 1.15 (0.83-1.16) 08/03/18 05:01 RLE: incision dressing is clean and dry, NVI, +pf/df ICD10 Worksheet Patient Problems: Problems Problem Status Onset Primary osteoarthritis of right hip Acute CLL (chronic lymphocytic leukemia) Acute Dehydration Acute SBO (small bowel obstruction) Acute
[2018-08-03] MEDS ORDERED: THYROID 60 MG TAB PO SCH ×2 (10:00)
[2018-08-03] MEDS: oxyCODONE IR 5 MG TAB PO PRN (10:35)
--- NOTE | 2018-08-03 11:09 | GDS ---
[f rep st] DISCHARGE SUMMARY ADMISSION DIAGNOSIS: Right hip osteoarthritis. DISCHARGE DIAGNOSIS: Right hip osteoarthritis. PROCEDURE: Right total hip arthroplasty. VTE PROPHYLAXIS: Recommend Coumadin and Lovenox. BRIEF DESCRIPTION OF HOSPITAL STAY: Patient was admitted for an elective joint arthroplasty. The patient tolerated the procedure well and has passed physical therapy. The patient was given appropriate antibiotic prophylaxis and venous thromboembolism prophylaxis. The patient's pain was well controlled on oral pain medication, patient was holding down food, and had urinated. Decision was made to discharge the patient. The patient was given post-operative prescriptions pre-operatively. PLAN: Followup as scheduled with Dr. Coffey's office August 22 at 10:15 with Malini Camejo. /[id number]/MODL MTDD
== END 2018-08-03 10:44 | disposition home or self-care (01) | DRG 470 ==
LOC: F3N 09:57
PROVIDERS: ADMIT Orthopaedic Surgery; ATTEND Orthopaedic Surgery
DX: M16.11 Unilateral primary osteoarthritis, right hip (principal); Z85.820 Personal history of malignant melanoma of skin; Z85.42 Personal history of malignant neoplasm of other parts of uterus
CPT/HCPCS: 97110-GP; 97116-GP; 97161-GP; J0171; J0690; J1100; J1650; J1885; J2250; J2704; J2795; J3010